=== PATIENT | male | born 1990 | race African-American/Black ===

== ENCOUNTER 2016-09-03 11:26 | Emergency (ER) | payer SELFPAY ==
[2016-09-03] MEDS ORDERED: IBUPROFEN 600 MG TABLET PO ONE (12:12)
--- NOTE | 2016-09-03 13:05 | RADIOLOGY REPORT (SQ) ---
EXAM DESCRIPTION: HAND BILATERAL 3 VIEWS COMPLETED DATE/TIME: 09/03/2016 12:47 pm REASON FOR STUDY: swelling and pain COMPARISON: None. EXAM PARAMETERS: NUMBER OF VIEWS: Three views right hand. Three views left hand. TECHNIQUE: AP, lateral and oblique radiographic images acquired of bilateral hands. LIMITATIONS: None. FINDINGS: RIGHT HAND: MINERALIZATION: Normal. BONES: No acute fracture or dislocation. No worrisome bone lesions. No significant osteophytes. JOINTS: No erosions. No jeanmarie-articular osteopenia. No chondrocalcinosis. SOFT TISSUES: Mild soft tissue swelling adjacent to the right 5th metacarpophalangeal joint and possi allan the right 3rd metacarpophalangeal joint. OTHER: No other significant finding. LEFT HAND: MINERALIZATION: Normal. BONES: No acute fracture or dislocation. No worrisome bone lesions. No significant osteophytes. JOINTS: No erosions. No jeanmarie-articular osteopenia. No chondrocalcinosis. SOFT TISSUES: No swelling. No calcifications. OTHER: No other significant finding. IMPRESSION: Mild soft tissue swelling otherwise negative hands. TECHNICAL DOCUMENTATION: JOB ID: [id number] [employer]- All Rights Reserved
--- NOTE | 2016-09-03 13:19 | ER Document Report ---
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 denies trauma. Bilateral swelling of the hands along the third fourth and fifth tendons. Tender to touch but no evidence of erythema, deformity, dislocation. Patient with full range of motion. Admits to stiffness in the morning and loosens up throughout the day with use of his hands but swelling is worse at the end of the day at the end of his chest. Patient states that he is taking Motrin a couple of times which helps with the pain. Otherwise he has not been evaluated for this problem. TRAVEL OUTSIDE OF THE [place] IN LAST 30 DAYS: No - Related Data Allergies/Adverse Reactions: onions Allergy (Uncoded 09/03/16 11:33) tongue swells up Past Medical History - Social History Smoking Status: Unknown if Ever Smoked Family History: Reviewed & Not Pertinent Patient has suicidal ideation: No Patient has homicidal ideation: No Renal/ Medical History: Denies: Hx Peritoneal Dialysis Skin Medical History: Reports Hx MRSA - Immunizations Hx Diphtheria, Pertussis, Tetanus Vaccination: No Review of Systems - Review of Systems Constitutional: No symptoms reported Musculoskeletal: See HPI -: Yes All other systems reviewed and negative Physical Exam - Vital signs Vitals: Temp Pulse Resp BP Pulse Ox 98.2 F 78 16 130/86 H 100 09/03/16 11:33 09/03/16 11:33 09/03/16 11:33 09/03/16 11:33 09/03/16 11:33 - General General appearance: Appears well, Alert In distress: None - Cardiovascular Pulses: Normal: Radial Normal capillary refill: Yes - Extremities General upper extremity: Tender - minimally tender along extensor tendons, no tenderness of metacarpals, or wrist, Normal color, Normal ROM, Normal strength, Normal temperature General lower extremity: Normal inspection, Nontender, Normal color, Normal ROM , Normal strength, Normal temperature, Normal weight bearing. No: Mustapha's sign Hand: No evidence of FB, Swelling. 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 Presentation today consistent with overuse injury likely due to his line of work and the fact that he works 7 days a week. No evidence of fracture or dislocation noted on x-ray. Patient educated on overuse tendon injury, ice, elevation, use of [id number] NSAIDs. Patient to discuss with fast food manager for rest for the next couple weeks and will follow up with primary care. - Vital Signs Vital signs: Temp Pulse Resp BP Pulse Ox 98.3 F 64 16 123/75 100 09/03/16 13:43 09/03/16 13:43 09/03/16 13:43 09/03/16 13:43 09/03/16 13:43 - Diagnostic Test Radiology reviewed: Image reviewed, Reports reviewed Discharge - Discharge Clinical Impression: Overuse injury, Bilateral hand swelling Condition: Good Disposition: HOME, SELF-CARE Instructions: Overuse Syndrome ([facility]), Use of [id number] Ibuprofen ([facility]), Ice & Elevation ([facility]) Additional Instructions: No evidence of broken bones noted on your x-ray Your injury today is consistent with an overuse injury most likely due to the amount that he is out of your hands at work and how often he work. Rest as indicated for at least 2 weeks to cut back on her hours to help your tendons heal. Prescriptions: Methylprednisolone [Medrol Dosepack (4 mg/Tab) 21 Tab/Dosepak] 4 mg PO ASDIR PRN #21 [email or web address] PRN Reason: Forms: Return to Work
[2016-09-03 14:04] VITALS: BP 123/75
== END 2016-09-03 13:44 | disposition home or self-care (01) ==
LOC: ER 11:26
DX: M70.842 Other soft tissue disorders related to use, overuse and pressure, left hand (principal); M70.841 Other soft tissue disorders related to use, overuse and pressure, right hand; Y93.G3 Activity, cooking and baking; Z86.14 Personal history of Methicillin resistant Staphylococcus aureus infection
CPT/HCPCS: 99283